=== PATIENT | female | born 1970 | race Caucasian/White ===

== ENCOUNTER 2017-08-01 15:51 | Emergency (ER) | payer BC | END 2017-08-01 18:38 | disposition home or self-care (01) | LOC: FTE 15:51 | DX: M65.841 Other synovitis and tenosynovitis, right hand (principal); F17.210 Nicotine dependence, cigarettes, uncomplicated | CPT/HCPCS: 29130; 73080-RT; 73130-RT; 99284-25 ==

== ENCOUNTER 2017-08-22 16:33 | Emergency (ER) | payer BC ==
[2017-08-22] MEDS: HYDROCODONE/APAP (5/325) TAB PO (17:28)
== END 2017-08-22 19:01 | disposition home or self-care (01) ==
LOC: FTE 16:33
DX: S69.91XA Unspecified injury of right wrist, hand and finger(s), initial encounter (principal); F17.210 Nicotine dependence, cigarettes, uncomplicated; X58.XXXA Exposure to other specified factors, initial encounter; Y92.9 Unspecified place or not applicable
CPT/HCPCS: 29130; 73140; 99283-25